=== PATIENT | female | born 1975 | race Caucasian/White ===

== ENCOUNTER 2019-04-09 19:15 | Emergency (ER) | payer SELFPAY ==
[~2019-04-09] VITALS: Ht 172.7 cm; Wt 79.0 kg
[2019-04-09 19:32] VITALS: BP 148/70
== END 2019-04-09 20:12 | disposition left against medical advice (07) ==
LOC: ER 19:15
DX: R51 Headache (principal); Z53.21 Procedure and treatment not carried out due to patient leaving prior to being seen by health care provider